=== PATIENT | male | born 1940 | race Caucasian/White ===

== ENCOUNTER 2018-05-03 10:25 | Emergency (ER) | payer MEDICARE ==
[2018-05-03 10:58] VITALS: BP 146/50
--- NOTE | 2018-05-03 11:10 | UC ---
General HPI - HPI Summary HPI Summary: SAT-SATURDAY OF THIS WEEK, PT HAD MULTIPLE BOUTS OF WATERY DIARRHEA TO THE POINT OF BEING UNABLE TO CONTROL HIS BOWELS. PT STATES HE DID HAVE DIARRHEA DOWN HIS LEGS ABOUT 5-6 TIMES. IT WAS VERY WATERY. HE HAD NO ASSOCIATED ABDOMINAL PAIN OR FEVER AND DENIES TRAVEL HX AND RECENT ANTIBIOTIC USE. HE IS HERE TODAY BECAUSE HE IS VERY WEAK, FATIGUED AND HAS "EXCESSIVE THIRST". PT ALSO HAS A SENSE OR NEEDING TO HAVE A BM BUT CAN NOT GO. HE HAS NO CP OR SOB AND NO N/V. PT IS A NON INSULIN DIABETIC. - History of Current Complaint Chief Complaint: UCGI Stated Complaint: CONSTIPATION Time Seen by Provider: 05/03/18 10:55 Hx Obtained From: Patient Timing: Constant Pain Intensity: 0 Associated Signs & Symptoms: Positive: Diarrhea, Weakness. Negative: Abdominal Pain, Back Pain, Chest Pain, Dizziness, Dysuria, Fever, Nausea, Palpitations, Vomiting - Allergy/Home Medications Allergies/Adverse Reactions: Allergies Allergy/AdvReac Type Severity Reaction Status Date / Time No Known Allergies Allergy Verified 05/03/18 10:51 Home Medications: Home Medications ARIPiprazole TAB* [Abilify 2 MG TAB*] 2 mg PO BEDTIME 05/03/18 [History Confirmed 05/03/18] Allopurinol TAB* [Zyloprim 300 MG TAB*] 300 mg PO EVERY OTHER DAY 05/03/18 [ History Confirmed 05/03/18] Atorvastatin* [Lipitor*] 20 mg PO DAILY 05/03/18 [History Confirmed 05/03/18] Citalopram TAB* [CeleXA TAB*] 20 mg PO DAILY 05/03/18 [History Confirmed ] Latanoprost 0.005%* [Xalatan 0.005%*] 1 drop BOTH EYES QPM 05/03/18 [History Confirmed 05/03/18] Levothyroxine TAB* [Synthroid TAB*] 50 mcg PO QAM 05/03/18 [History Confirmed ] Lisinopril TAB* [Prinivil TAB*] 10 mg PO DAILY 05/03/18 [History Confirmed 05/03] Tamsulosin CAP* [Flomax CAP*] 0.4 mg PO DAILY 05/03/18 [History Confirmed ] clonazePAM TAB(*) [KlonoPIN TAB(*)] 1 mg PO TID PRN 05/03/18 [History Confirmed 05/03/18] metFORMIN* [Glucophage 500 MG TAB *] 500 mg PO DAILY 05/03/18 [History Confirmed 05/03/18] PMH/Surg Hx/FS Hx/Imm Hx - Additional Past Medical History Additional PMH: Gout, Anemia Endocrine History: Diabetes, Thyroid Disease, Dyslipidemia Cardiovascular History: Cardiac Disease, Hypertension Psychological History: Depression - Surgical History Surgical History: Yes Surgery Procedure, Year, and Place: Parital Colectomy (adhesions), Spleen "Work ", and Herniorrhaphies, 07/2017, [place]; Partial Colectomy (perforation), 2008 , [place]; Double CABG, ~2007, [facility]; Tonsillectomy, ~1946 - Family History Known Family History: Positive: Non-Contributory - Social History Occupation: Retired Alcohol Use: None Substance Use Type: None Smoking Status (MU): Never Smoked Tobacco - Immunization History Vaccination Up to Date: Yes Review of Systems All Other Systems Reviewed And Are Negative: Yes Constitutional: Positive: Fatigue Skin: Positive: Negative Eyes: Positive: Negative ENT: Positive: Negative Respiratory: Negative: Shortness Of Breath, Cough Cardiovascular: Negative: Palpitations, Chest Pain Gastrointestinal: Positive: Diarrhea. Negative: Abdominal Pain, Vomiting, Nausea Genitourinary: Negative: Dysuria Motor: Positive: Weakness Neurovascular: Positive: Negative Musculoskeletal: Positive: Negative Neurological: Positive: Negative Psychological: Positive: Negative Physical Exam Triage Information Reviewed: Yes Appearance: Well-Appearing Vital Signs: Initial Vital Signs Temp 98.3 F 05/03/18 10:49 Pulse 80 05/03/18 10:49 Resp 16 05/03/18 10:49 BP 146/50 05/03/18 10:49 Pulse Ox 98 05/03/18 10:49 Vital Signs Reviewed: Yes Eyes: Positive: Conjunctiva Clear ENT: Positive: TMs normal, Other - Lips and tongue are very dry.. Negative: Pharyngeal erythema, Nasal congestion, Nasal drainage Neck: Positive: Supple, Nontender, No Lymphadenopathy Respiratory: Positive: Lungs clear, Normal breath sounds Cardiovascular: Positive: RRR, No Murmur, Pulses Normal - radial pulse is strong. Abdomen Description: Positive: Nontender, No Organomegaly, Soft. Negative: CVA Tenderness (R), CVA Tenderness (L), Distended, Guarding Bowel Sounds: Positive: Present Musculoskeletal: Positive: ROM Intact Neurological: Positive: Alert Psychological: Positive: Age Appropriate Behavior Skin Exam: Normal Course/Dx - Course Course Of Treatment: PT ADVISED OF NEED FOR LABS AND IV HYDRATION AT THE LEAST THUS ER TRANSFER ADVISED. PT AGREES TO GO ER. PT STATES HIS FRIEND WILL DRIVE HIM THERE NOW. [facility] ER CALLED. REPORT GIVEN TO ORLANDO MCDOWELL NP. ADVISED OF HX, PX AND STRESSED PT IS WEAK, FATIGUED, THIRSTY AND UNABLE TO HAVE BM FOLLOWING 4 DAYS OF SEVERE DIARRHEA. - Diagnoses Provider Diagnosis: Weakness, Fatigue, Excessive thirst Discharge - Sign-Out/Discharge Documenting (check all that apply): Patient Departure All imaging exams completed and their final reports reviewed: No Studies - Discharge Plan Condition: Stable Disposition: TRANS HIGHER LVL OF CARE FAC Referrals: Bradley Ray MD [Primary Care Provider] - Additional Instructions: LEAVE HERE AND GO DIRECTLY TO THE [facility] ER DISCUSSED. - Billing Disposition and Condition Condition: STABLE Disposition: Trans Higher Lvl of Care Fac - Attestation Statements Provider Attestation: I was available for consult. This patient was seen by the [facility]. The patient was not presented to, seen by, or examined by me. EK
== END 2018-05-03 11:20 | disposition short-term general hospital (02) ==
LOC: UCCORT 10:25
DX: R53.1 Weakness (principal); R53.83 Other fatigue; E11.9 Type 2 diabetes mellitus without complications; Z79.84 Long term (current) use of oral hypoglycemic drugs; R63.1 Polydipsia; I10 Essential (primary) hypertension; E07.9 Disorder of thyroid, unspecified; E78.5 Hyperlipidemia, unspecified; F32.9 Major depressive disorder, single episode, unspecified; I51.9 Heart disease, unspecified
CPT/HCPCS: 99212; G0463